=== PATIENT | female | born 1945 | race American Indian/Alaskan Native ===

== ENCOUNTER 2018-09-07 12:15 | Outpatient (CLI) | payer MEDICARE ==
--- NOTE | 2018-09-07 16:24 | XRay Report ---
METASTATIC SURVEY:09/07/18 CLINICAL: Monoclonal gammopathy FINDINGS: Lateral skull: A single subcentimeter lucent occipital skull lesion. Cervical spine: Negative Thoracic spine: Negative Lumbar spine: Negative Chest and ribs: Negative Bilateral humerus: Negative Pelvis and hips: Negative Bilateral femur: Negative IMPRESSION: Single suspicious lucent skull lesion and otherwise negative study.
== END 2018-09-07 12:16 | disposition home or self-care (01) ==
LOC: SPVIMAG 12:15
PROVIDERS: ATTEND Internal Medicine Hematology & Oncology
DX: D47.2 Monoclonal gammopathy (principal)
CPT/HCPCS: 77074